=== PATIENT | female | born 1985 | race Caucasian/White ===

== ENCOUNTER → 2018-04-28 16:26 | Outpatient (CLI) | payer MEDICAID, SELFPAY ==
--- NOTE | 2018-04-28 16:32 | US_ITS ---
STUDY: SUPERFICIAL ULTRASOUND - RIGHT POSTERIOR KNEE. REASON FOR EXAM: Female, 32 years old. Right posterior knee pain. TECHNIQUE: A superficial ultrasound was performed with real-time and static fox-scale imaging. COMPARISON: None. FINDINGS: No visible lesion or mass in the right posterior knee. US/Ext Non Vasc Limited/Soft Tiss IMPRESSION: No visible mass or lesion in the right posterior knee pain site. MRI will be more helpful if desired. Electronically Signed: Jose Katz MD at 12:52 EDT , Service support ,
== END ==
PROVIDERS: Family Provider Family Medicine; PCP Family Medicine; Visit Provider Family Medicine
DX: M25.561 Pain in right knee (principal)
CPT/HCPCS: 76882

== ENCOUNTER 2019-07-08 18:55 | Emergency (ER) | payer SELFPAY ==
[2019-07-08 18:57] VITALS: BP 165/97; PULSE 84; RESP 17; TEMP 36; O2SAT 100; BMI 43.2
--- NOTE | 2019-07-08 19:10 | ED.DCSUM_ITS ---
History of Present Illness Chief Complaint: Dental Informant: Patient Narrative: Patient presents with right lower dental pain for about a month. Apparently her dentist tried to pull the tooth out but could not get her numb. She is possibly in the process of finding a new dentist. She also has right neck pain where she noticed a lump. She has no fever chills or difficulty swallowing Past Medical History - Allergies and Home Meds Allergies/Adverse Reactions: Allergies gabapentin Allergy (Verified 07/08/19 18:55) Other ethinyl estradiol [From Sprintec (28)] Adverse Reaction (Verified 07/08/19 18:55) Other norgestimate [From Sprintec (28)] Adverse Reaction (Verified 07/08/19 18:55) Other Primary Care Physician: Adalberto Murphy MD [Primary Care Provider] - Past Medical History: None Smoking Status: Never smoker Review of Systems General: Denies: Fever ENT: Reports: -. Denies: Sore throat - Dental pain as in HPI Cardiovascular: Denies: Chest pain Respiratory: Denies: Dyspnea Gastrointestinal: Denies: Abdominal pain Hematologic: Denies: Easy bruising Allergy: Denies: Swelling of the mouth, Swelling of the tongue Physical Exam Vital Signs/Narrative: Vital Signs Temp Pulse Resp BP Pulse Ox 07/08/19 18:57 96.8 F L 84 17 165/97 H 100 General: Well nourished, Well developed Head: Normocephalic ENT: - - There is a decayed right second molar on the lower side. There is no abscess. Neck: - - Is a posterior lymph node on the same side as the tooth, right Cardiovascular: Regular rate Respiratory: No distress Skin: Normal color Diagnostic/Tx/Re-eval - Medical Decision Making Patient will be treated with antibiotics and analgesia. She is to follow-up with dentistry ED Disposition - Plan for ED Patient: Disposition: Home or Assisted Living Diagnosis: Pain, dental Instructions: Dental Pain Prescriptions: Clindamycin [Cleocin] 300 mg PO 4X/DAY #80 cap Transmission Status: Pending to [facility] #30 Naproxen [Naprosyn] 500 mg PO BID PRN #20 tab Transmission Status: Pending to [facility] #30
[2019-07-08] MEDS: oxyCODONE 5 MG Tablet PO (19:54)
[2019-07-08 19:56] VITALS: BP 165/97; PULSE 84; RESP 17; O2SAT 100
== END 2019-07-08 19:57 | disposition home or self-care (01) ==
LOC: ED 19:24
PROVIDERS: Emergency Provider Emergency Medicine; Family Provider Family Medicine; PCP Family Medicine
DX: K08.89 Other specified disorders of teeth and supporting structures (principal)
CPT/HCPCS: 99283

== ENCOUNTER → 2024-01-24 | Outpatient (CLI) | payer OTHER, SELFPAY ==
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
== END | disposition home or self-care (01) ==
LOC: MRI 09:49
PROVIDERS: PCP Family Medicine; Referring Provider Orthopaedic Surgery; Visit Provider Orthopaedic Surgery
DX: S83.8X2A Sprain of other specified parts of left knee, initial encounter (principal); S80.02XA Contusion of left knee, initial encounter
CPT/HCPCS: 73721